=== PATIENT | male | born 1990 | race Asian ===

== ENCOUNTER 2023-07-20 08:18 | Outpatient (CLI) | payer OTHER ==
--- NOTE | 2023-07-20 08:58 | Sleep Patient Instructions ---
Sleep Center Visit Summary - Patient Visit Information Reason for Visit: Initial consult for evaluation of sleep disordered breathing and other sleep issues. - Patient Instructions Instructions Attached: Sleep Study Home Monitor, Sleep Study Additional Instructions: You will be completing a sleep study, either an in-lab polysomnography (PSG) or home sleep study (HST). You will follow-up in the sleep care office after the sleep study is completed to hear the results and talk about therapy, if needed. You will be called by our office staff to schedule this appointment, but you may contact us with any questions. - Clinic Information Contact: [facility] [address] [place] [id number] [email or web address] T: [phone]
--- NOTE | 2023-07-20 09:03 | SLEEP CARE CONSULTATION ---
Information from patient questionnaire entered by Alessandro Barba. I have reviewed and concur with the information entered by Alessandro Barba. This document represents the service I personally performed and the decisions made by me, Amanda Boss ARNP. History of Present Illness Service Date and Time: 07/20/2023 0818 Reason for Visit: New patient Chief Complaint: reports: Unrefreshed sleep, Snoring, Observed pauses in breathing, Frequent awakenings at night Date of Onset: 5YRS Usual bedtime: DO NOT HAVE ONE DUE TO CONSTANT SHIFT CHANGES Time it takes to fall asleep: 30-60MIN Snores at night: Yes Observed to quit breathing while asleep: Yes Sleeps alone due to snoring: No Number of times waking at night: 2 Reasons for waking at night: reports: Gasping for air, Other (NOISE, UNKNOWN). denies: Choking Toss, Turn, or Twitch while sleeping: Yes Recalls having dreams: Yes Usually gets out of bed at: 430AM, 11AM, 1PM Feels refreshed in the morning: No Morning headache: Yes (5-6 days a week, resolves after drinking water) Sleepy or fatigued during the day: Yes (some unintentional naps when sedentary) Ever fallen asleep while driving: No Takes day naps: No Dreams during day naps: Yes Prior sleep studies: No Additional HPI information: I had the pleasure of seeing GORDO GEIGER today regarding the possibility of him having a sleep disorder. His current complaints are frequent night awakenings, observed pauses in breathing, snoring and unrefreshed sleep. He states his tells him that he stops breathing at night when sleeping will also gasp in his sleep. His is concerned about this and will shake him to make him breathe. He states it takes a while to get to sleep and will wake up frequently at night. He thinks he is a light sleeper. He states his shifts at [employer] shift on nearly a weekly basis sometimes and this messes with his sleep. He states his snores loudly and his will try to fall asleep before he does to avoid the snoring. He says she is a heavy sleeper. He has woke up feeling like he was not breathing, gasping for air. He has been wanting to get checked for sleep disorder for long time but has been stationed in [place] and unable to get tested. - Parasomnia Symptoms Ever been unable to move upon waking from sleep: No Walks in sleep: No Talks in sleep: Yes Ever acted out dreams in sleep: Yes Ever felt weak in the knees when startled or emotional: No Bothered by creepy, crawly, restless sensations in legs: Yes (tingling mostly in feet, sometimes in arm; randomly happens) Problems with memory or concentration: No Subjective Initial [place] Sleepiness Scale score: 22 (07/20/23) Past Medical History Past Medical History: reports: Other (no signicant medical history) Social History The patient's occupation is a AM. Patient is and lives in . Have you smoked in the past 12 months: No Alcohol use: Yes Alcohol amount and frequency: 6 PACK ON DAYS OFF Caffeine use: Yes Caffeine amount and frequency: 3 ONCE BEFORE NOON RANDOM DAYS OF THE WEEK Family History Family history of sleep disordered breathing: Yes Family Hx Sleep Apnea: Father: Snoring, Sibling: Snoring, Grandparent: Snoring Allergies and Home Medications Known drug allergies: No (SEASONAL) Drug allergies reviewed: Yes Home medication list reviewed: Yes Allergy and home medication list: Home Medications Medication Instructions Recorded Confirmed Last Taken Type No Known Home Medications 07/20/23 07/20/23 Unknown History Review of Systems Weight gain over past 5 years: 20 Cardiovascular: reports: other (LOW BLOOD PRESSURE). denies: high blood pressure Respiratory: reports: shortness of breath (SINCE HAVING COVID) Gastrointestinal: reports: heartburn Neurological: denies: headaches Psychiatric: denies: anxiety, depression Ear/Nose/Throat: reports: nasal congestion, sinus problems, nose bleeds, dry mouth/throat. denies: tonsillectomy Endocrine: reports: sluggishness Musculoskeletal: reports: joint pain, neck pain, back pain, joint swelling, muscle pain or cramping Immunologic: reports: allergies to food or environment (seasonal) Physical Exam Vital signs obtained and entered by: ALESSANDRO Collins MA Blood Pressure: 128/80 (LEFT ARM) Cuff size: regular Heart Rate: 75 O2 Saturation: 99 Height: 5 ft 3 in Weight: 149 lb 6.4 oz (FULLY DRESSED) Body Mass Index: 26.4 BMI Classification: Overweight Neck circumference: 15 Mouth and throat: normal Soft palate: normal Hard palate: normal Uvula: normal Uvula visualization: 50% Mallampati Class II Tongue: enlarged in size with teeth felipe on lateral edges Tonsils: small Neck: normal w/o lymphadenopathy or thyromegaly Heart: regular rate and rhythm Lungs: clear bilaterally Impression and Plan 1. Suspected Obstructive Sleep Apnea-Hypopnea Syndrome, as suggested by a history of loud and irregular snoring, observed cessation of breath while asleep, gasping or choking in sleep, morning headache, frequent awakening during the night, unrefreshed sleep, and excessive daytime sleepiness. Narrow oropharynx and obesity are common predisposing factors for obstructive sleep apnea-hypopnea syndrome. I recommend proceeding to polysomnography to confirm the diagnosis and to assess severity. If the patient has significant sleep disordered breathing, a manual CPAP titration study will also be performed to find the optimal treatment pressure. I informed the patient of what the sleep studies involve and after some discussion, obtained agreement to proceed. The pathophysiology of obstructive sleep apnea-hypopnea syndrome was discussed with the patient and health risks of cardiovascular and cerebrovascular disease if not treated. Risks of drowsy driving discussed in detail and patient advised to avoid long distance driving and to insole coverer at the first sign of drowsiness. Patient agreed to plan. * Schedule polysomnography. * Avoid long distance driving or driving when feeling sleepy. * Avoid alcohol, sedative and muscle relaxant around bedtime. * Attempt to lose weight. * Review instructions provided by trained office staff on how to prepare for the sleep study. * Return for follow-up after sleep study completed. Counseling Topics: Weight loss health impact Plan: PSG Visit Type: In Office Time Spent with Patient (minutes): 30 Provider Statement: I spent 100% of the Face to Face Visit with the patient with greater than 50% spent counseling the patient and coordination of care.
[2023-07-20 09:09] VITALS: BP 128/80; O2SAT 99
== END 2023-07-20 08:19 | disposition home or self-care (01) ==
LOC: SC 08:18
PROVIDERS: ATTEND Nurse Practitioner Family
DX: R06.83 Snoring (principal); R06.81 Apnea, not elsewhere classified; G47.8 Other sleep disorders; R51.9 Headache, unspecified; G47.10 Hypersomnia, unspecified; E66.3 Overweight; Z68.26 Body mass index [BMI] 26.0-26.9, adult
CPT/HCPCS: 99203; 99212

== ENCOUNTER 2023-08-21 19:27 | Outpatient (CLI) | payer OTHER | END 2023-08-21 19:28 | disposition home or self-care (01) | LOC: SC 19:27 | PROVIDERS: ATTEND Nurse Practitioner Family | DX: G47.33 Obstructive sleep apnea (adult) (pediatric) (principal) | CPT/HCPCS: 95810 ==

== ENCOUNTER 2023-09-06 15:03 | Outpatient (CLI) | payer OTHER ==
--- NOTE | 2023-09-06 15:37 | Sleep Patient Instructions ---
Sleep Center Visit Summary - Patient Visit Information Reason for Visit: Sleep study follow-up - Patient Instructions Instructions Attached: CPAP Additional Instructions: You are being started on CPAP therapy with pressure setting at 4-15 cmH2O. You will need to call the sleep care office to set up your follow up once you have your APAP machine and we will schedule a visit to check compliance and response to therapy at that time. You may call the office with any concerns about pressure feeling too low or too much for adjustment, if needed. You should contact DME supplier for any questions or concerns about mask or equipment. Please call office to schedule a follow up appointment in the sleep care office one month after obtaining new device. - Clinic Information Contact: [facility] [address] [place] [address] [email or web address] T: [phone]
--- NOTE | 2023-09-06 15:39 | SLEEP CARE CONSULTATION ---
Information from patient questionnaire entered by Gabby Barba. I have reviewed and concur with the information entered by Gabby Barba. This document represents the service I personally performed and the decisions made by , Amanda Boss ARNP. History of Present Illness Service Date and Time: 09/06/2023 1503 Initial [place] Sleepiness Scale score: 22 (07/20/23) Current [place] Sleepiness Scale score: 15 (09/06/23) Additional HPI information: GORDO GEIGER returns for follow up and results of the recently performed polysomnography. The sleep study showed mild obstructive sleep apnea with an average AHI of 8.2 and wendy oxygen saturation of 86%. I explained the pathophysiology behind obstructive sleep apnea. We then spent quite a bit of time discussing different treatment options. For mild obstructive sleep apnea, surgery and oral appliance are alternatives to nasal CPAP therapy but in moderate or severe cases, nasal CPAP is the most effective and reliable treatment. I reviewed the impact of weight changes on sleep apnea and strongly recommended losing weight. After some discussion, the patient opted to go with the nasal CPAP therapy. Nasal autoCPAP set at 4-15 cmH20 will be ordered with rationale explained. A manual titration study will be ordered if unable to find optimal pressure with office adjustments. I explained how CPAP machine works and what to expect when using the machine. Using CPAP every night in order to get used to it was emphasized. Patient advised to put CPAP mask on before getting into bed so as not to fall asleep without CPAP. To assist acclimation to CPAP use, it could also be used for a short time during day while reading or watching TV. The patient was instructed to call the CPAP supplier to discuss any mechanical problem that may occur. If the mask given is uncomfortable or is difficult to keep on through the night even with adjustment, contact the CPAP supplier as many will replace with another mask style if notified before 30 days. If snoring or perceives is not getting enough air or too much air from the machine, notify this office. Patient counseled not drink alcohol less than 4 hours before bedtime as it can increase snoring and apnea. Patient was cautioned about risks of drowsy driving until sleepiness symptoms resolve. Sleep Study - Results Type of Sleep Study: Polysomnography (COMPLETED 08/21/23) Prior sleep studies: No Polysomnography/Home Sleep Study results: IMPRESSION: The quality of the study is good. The patient had minimally reduced sleep efficiency. The sleep architecture was abnormal for sleep fragmentation and reduced amount of time spent in slow wave sleep (N3). Respiratory monitoring showed mild obstructive sleep apnea-hypopnea (AHI = 8.2) associated with frequent arousals, oxyhemoglobin desaturation and mild hypoxia (wendy oxygen saturation of 86%). The patient only slept supine during this study (supine AHI = 8.2; non-supine = 0.00). Snore was light in intensity. There was no significant periodic leg movement of sleep. Cardiac rhythm was normal sinus rhythm without significant arrhythmia. No abnormal behavior (parasomnia) observed during the night. Allergies and Home Medications Known drug allergies: No Drug allergies reviewed: Yes Home medication list reviewed: Yes (no changes) Allergy and home medication list: Allergies No Known Drug Allergies Allergy (Verified 09/05/23 09:32) Review of Systems Review of systems same as previous: Yes (NO CHANGE) Physical Exam Vital signs obtained and entered by: GABBY Collins MA Blood Pressure: 112/70 (LEFT ARM) Cuff size: regular Heart Rate: 66 O2 Saturation: 99 Height: 5 ft 3 in Weight: 153 lb 6.4 oz Body Mass Index: 27.1 BMI Classification: Overweight Impression and Plan 1. Obstructive Sleep Apnea-Hypopnea Syndrome, mild, with lowest oxygen saturation of 86%. Obviously this is the cause of the patients symptoms of unrefreshed sleep, and excessive daytime sleepiness. As mentioned above, the patient will be started on nasal autoCPAP therapy with pressure set at 4-15 cmH2 O. A manual titration study will be completed if unable to find optimal treatment pressure with office adjustments. Compliance guidelines also reviewed. A copy of compliance guidelines will be given for reference at check out. 2. Hypoxemia, mild, with a wendy oxygen saturation of 86% and 0.5 minutes spent under 90%. The baseline oxygen saturation was normal with an average oxygen saturation of 95%. 3. Overweight, unspecified. Currently patients BMI is 27.1. Obesity increases the risk of apnea, CPAP pressure requirements and overall health risks especially cardiovascular and diabetes. Thus patient is advised to lose weight. * Nasal auto CPAP therapy, pressure at 4-15 cm H2O. * Attempt to lose weight. * Avoid alcohol consumption near bedtime. * Avoid supine sleep until using CPAP. * The patient is again cautioned about driving until sleepiness completely resolves. * Return one month after CPAP obtained. I will assess response to therapy and compliance at that time. Counseling Topics: Weight loss health impact Prescriptions: Auto CPAP Visit Type: In Office Time Spent with Patient (minutes): 20 Provider Statement: I spent 100% of the Face to Face Visit with the patient with greater than 50% spent counseling the patient and coordination of care.
[2023-09-06 15:48] VITALS: BP 112/70; O2SAT 99
== END 2023-09-06 15:04 | disposition home or self-care (01) ==
LOC: SC 15:03
PROVIDERS: ATTEND Nurse Practitioner Family
DX: G47.33 Obstructive sleep apnea (adult) (pediatric) (principal); R09.02 Hypoxemia; E66.3 Overweight; Z68.27 Body mass index [BMI] 27.0-27.9, adult
CPT/HCPCS: 99212; 99213

== ENCOUNTER 2023-11-22 11:22 | Outpatient (CLI) | payer OTHER ==
--- NOTE | 2023-11-22 12:03 | SLEEP CARE CONSULTATION ---
Information from patient questionnaire entered by Gabby Barba. I have reviewed and concur with the information entered by Gabby Barba. This document represents the service I personally performed and the decisions made by me, Amanda Boss ARNP. History of Present Illness Service Date and Time: 11/22/2023 112 Previous diagnosis: Mild, Obstructive Sleep Apnea-Hypopnea Syndrome AHI: 8.2 (08/21/23) Reason for follow up: first compliance Equipment type: CPAP (RESMED, s/u 09/16/23) Equipment obtained from: Other ([facility]; getting supplies) Mask style: Nasal pillows Mask brand: Resmed (P10, medium cushion) Backup mask available: No (will keep old mask when replaced) Last cushion change: last night Prior sleep studies: No Type of Sleep Study: Polysomnography (COMPLETED 08/21/23) HPI additional information: GORDO GEIGER was diagnosed to have mild, AHI 8.2, obstructive sleep apnea- hypopnea syndrome and returned today for CPAP therapy first compliance follow- up. Sleep Study - Results Type of Sleep Study: Polysomnography (COMPLETED 08/21/23) Prior sleep studies: No CPAP Compliance Data - Data Reviewed with Patient Average duration of nightly device use: 5 HRS 33 MINS Compliance rate %: 70 (10/04/22-11/02/23; 93% in last 30 days) Current pressure setting (cmH2O): 4-15 (median 5.3, avg 6.8, max 7.7) Average residual AHI: 2.4 Central apnea: 2 Obstructive apnea: 0.2 Average large leak: 0 Subjective Missed days of use due to: reports: illness (nose congested) Patient concerns: reports: mask discomfort, condensation in mask/hose (has machine on Auto for humidity), nasal congestion. denies: aerophagia, air blowing in eyes, mask leak noise, dry mouth, nose, throat, epistaxis Observed to snore while using device: No Current pressure setting perceived as: comfortable On therapy, patient: reports: sleeping better, awakening more refreshed, being more awake and alert during the day, more rested overall. denies: drowsiness while driving Initial [place] Sleepiness Scale score: 22 (07/20/23) Current [place] Sleepiness Scale score: 15 Allergies and Home Medications Known drug allergies: No Drug allergies reviewed: Yes Home medication list reviewed: Yes (no changes) Allergy and home medication list: Allergies No Known Drug Allergies Allergy (Verified 11/17/23 17:04) Review of Systems Review of systems same as previous: No (psoriasis) Physical Exam Vital signs obtained and entered by: Amanda Harris NP Blood Pressure: 138/97 Cuff size: long (right arm) Heart Rate: 71 O2 Saturation: 97 Height: 5 ft 3 in Weight: 157 lb 6.4 oz Body Mass Index: 27.8 BMI Classification: Overweight Impression and Plan 1. Obstructive Sleep Apnea-Hypopnea Syndrome, mild, with good treatment compliance and good apnea control. On CPAP therapy, the patient has better sleep quality and is more rested overall. He is using a nasal pillows mask but would like to try a different style of nasal pillows mask, the [employer] Brevida that he saw out in the waiting room. I will add this to his pressure change prescription today for a mask refitting. The patients pressure will be changed to autoCPAP 5-7 cmH20 to reflect pressure being used. Patient advised to contact me if pressure change is uncomfortable so that it can be adjusted. Goals for apnea control discussed. Patient's apnea severity and rationale for treatment to reduce apnea, improve sleep quality and reduce cardiovascular and cerebrovascular events was reviewed. 2. Overweight, unspecified. Currently patients BMI is 27.8. Obesity increases the risk of apnea, CPAP pressure requirements and overall health risks especially cardiovascular and diabetes. Thus patient is advised to lose weight. * Change auto CPAP pressure to 5-7 cmH2O * Notify me if snoring with mask or feeling that the pressure is too much or too little * Attempt to lose weight * Call this office if any problems using CPAP * Return for follow up in 3 months, or sooner if concerns arise Adjust device pressure to (cmH2O): 5-7 Counseling Topics: Spare mask, Weight loss health impact Prescriptions: Other (mask refitting) Follow up with Sleep Care in: 3 months Visit Type: In Office Time Spent with Patient (minutes): 22 Provider Statement: I spent 100% of the Face to Face Visit with the patient with greater than 50% spent counseling the patient and coordination of care.
[2023-11-22 12:05] VITALS: BP 138/97; O2SAT 97
== END 2023-11-22 11:23 | disposition home or self-care (01) ==
LOC: SC 11:22
PROVIDERS: ATTEND Nurse Practitioner Family
DX: G47.33 Obstructive sleep apnea (adult) (pediatric) (principal)
CPT/HCPCS: 99212; 99213

== ENCOUNTER 2024-02-17 13:47 | Outpatient (CLI) | payer OTHER ==
--- NOTE | 2024-02-17 11:48 | SLEEP CARE CONSULTATION ---
Information from patient questionnaire entered by Gabby Barba. I have reviewed and concur with the information entered by Gabby Barba. This document represents the service I personally performed and the decisions made by , Amanda Boss ARNP. History of Present Illness Service Date and Time: 02/17/2024 112 Previous diagnosis: Mild, Obstructive Sleep Apnea-Hypopnea Syndrome AHI: 8.2 (08/21/23) Reason for follow up: three month (F/U) Equipment type: CPAP (RESMED Airsense 11; S/U 09/16/23) Equipment obtained from: Other ([facility]; getting supplies) Mask style: Nasal pillows (medium cushion) Backup mask available: No Last cushion change: 2 days ago Prior sleep studies: No Type of Sleep Study: Polysomnography (COMPLETED 08/21/23) HPI additional information: GORDO GEIGER was diagnosed to have mild, AHI 8.2, obstructive sleep apnea- hypopnea syndrome and returns via telephone appointment today for CPAP therapy three month follow-up. 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 denies: aerophagia, air blowing in eyes, mask leak noise, condensation in mask/hose, nasal congestion, dry mouth, nose, throat, epistaxis Observed to snore while using device: No Current pressure setting perceived as: comfortable On therapy, patient: reports: sleeping better, awakening more refreshed, being more awake and alert during the day, more rested overall. denies: drowsiness while driving Initial [place] Sleepiness Scale score: 22 (07/20/23) Current [place] Sleepiness Scale score: 15 Allergies and Home Medications Known drug allergies: No Drug allergies reviewed: Yes Home medication list reviewed: Yes (no changes) Allergy and home medication list: Allergies No Known Drug Allergies Allergy (Verified 02/15/24 11:16) Review of Systems Review of systems same as previous: Yes (no changes) Physical Exam Vital signs obtained and entered by: AMANDA TUCKER Height: 5 ft 3 in Weight: 145 lb Body Mass Index: 25.7 BMI Classification: Overweight Impression and Plan 1. Obstructive Sleep Apnea-Hypopnea Syndrome, mild, with fair treatment compliance and good apnea control. On CPAP therapy, the patient has better sleep quality and is more rested overall. 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 He has been trying to use it more since he returned home. He still has some nasal soreness from the pillows mask that he is using. He never received a change of mask that we asked for at the last visit. He may not have been eligible for a new headgear. I will send a second request and he is also requesting a battery backup for times when he cannot plug-in when deployed. Patient's apnea severity and rationale for treatment to reduce apnea, improve sleep quality and reduce cardiovascular and cerebrovascular events was reviewed. 2. Overweight, unspecified. Currently patients BMI is 25.7. Obesity increases the risk of apnea, CPAP pressure requirements and overall health risks especially cardiovascular and diabetes. Thus patient is advised to maintain a healthy weight. * Continue auto CPAP pressure at 5-7 cmH2O * Mask refitting for nasal pillows mask, Brevida * Battery backup * Notify me if snoring with mask or feeling that the pressure is too much or too little * Call this office if any problems using CPAP * Return for follow up in 6 months, or sooner if concerns arise Prescriptions: Other (mask refitting and battery backup) Follow up with Sleep Care in: 6 months Visit Type: Telehealth Phone Video Type: Doximity Location of Provider: Office Patient agrees and consents to this telehealth visit type: Yes Time Spent with Patient (minutes): 15 Provider Statement: I spent 100% of the Telehealth Phone Call with the patient with greater than 50% spent counseling the patient and coordination of care.
== END 2024-02-17 13:48 | disposition home or self-care (01) ==
LOC: SC 13:47
PROVIDERS: ATTEND Nurse Practitioner Family
DX: G47.33 Obstructive sleep apnea (adult) (pediatric) (principal); E66.3 Overweight; Z68.25 Body mass index [BMI] 25.0-25.9, adult
CPT/HCPCS: 99442